=== PATIENT | male | born 1970 | race Caucasian/White ===

== ENCOUNTER → 2020-08-21 | Day surgery (SDC) | payer OTHER ==
[~2020-08-21] VITALS: Ht 180.3 cm; Wt 68.0 kg
[~2020-08-21] MED LIST: PASSION FLOWER PO; [UNRECOGNIZED DRUG - OTHER] PO; [UNRECOGNIZED DRUG - OTHER] PO; [UNRECOGNIZED DRUG - OTHER] PO
[2020-08-21 14:15] LABS: HCT 44.1 % (42.0-52.0); HGB 15.8 g/dl (13.2-18.0); MCH 33.3 pg (25.0-31.0); MCHC 35.8 g/dL (32.0-36.0); MPV 9.7 fL (6.0-9.5); RBC 4.74 M/uL (4.70-6.00); RDW 12.3 % (11.5-14.0); WBC 7.3 K/uL (4.0-10.5)
== END | disposition home or self-care (01) ==
LOC: FAS 13:30
PROVIDERS: Anesthesiology
DX: S52.371A Galeazzi's fracture of right radius, initial encounter for closed fracture (principal); K21.9 Gastro-esophageal reflux disease without esophagitis; X58.XXXA Exposure to other specified factors, initial encounter; Z88.8 Allergy status to other drugs, medicaments and biological substances
CPT/HCPCS: 36415; 73090; 76000; C1713; J0690; J2250; J2704; J2795; J3010; J7120